=== PATIENT | male | born 1990 | race African-American/Black ===

== ENCOUNTER 2021-05-28 00:23 | Emergency (ER) | payer SELFPAY ==
[~2021-05-28] VITALS: Ht 195.6 cm; Wt 89.1 kg
[2021-05-28 00:27] VITALS: BP 102/69; Ht 195.6 cm; Wt 89.1 kg
[2021-05-28] MEDS ORDERED: HYDROCODON-ACE1 EA10 PO (01:07)
[2021-05-28] MEDS ORDERED: CLEOCIN HCL300 MG PO (01:08)
== END 2021-05-28 01:46 | disposition home or self-care (01) ==
LOC: D.ER 00:23
DX: T23.101A Burn of first degree of right hand, unspecified site, initial encounter (principal); W39.XXXA Discharge of firework, initial encounter